=== PATIENT | female | born 1955 | race Caucasian/White ===

== ENCOUNTER 2020-08-31 16:50 | Emergency (ER) | payer OTHER ==
[~2020-08-31] VITALS: Ht 157.5 cm; Wt 74.4 kg
[2020-08-31 16:57] VITALS: Ht 157.5 cm; Wt 74.4 kg
[2020-08-31 18:56] VITALS: BP 171/90
== END 2020-08-31 18:56 | disposition home or self-care (01) ==
LOC: ED 16:50
DX: B02.30 Zoster ocular disease, unspecified (principal); I10 Essential (primary) hypertension